=== PATIENT | male | born 1985 | race African-American/Black ===

== ENCOUNTER 2019-06-16 09:50 | Inpatient (IN) | payer BC, MEDICAID ==
[2019-06-16] VITALS (37 sets, daily range): BP systolic 105–223; BP diastolic 48–183
[~2019-06-16] VITALS: Ht 180.3 cm; Wt 113.6 kg
[2019-06-16] MEDS ORDERED: ASA81BEC PO (10:07)
[2019-06-16] MEDS ORDERED: GAVILAX17 GM PER TUBE (10:08)
[2019-06-16] MEDS ORDERED: ASPIRIN PER TUBE (10:09)
[2019-06-16] MEDS ORDERED: TRANSDERM-SCOP1 EACH TRANSDERM (10:11)
[2019-06-16 10:12] LABS: ABSOLUTE NEUTROPHILS 8.7 thou/uL (1.4-8.2); BASOPHILS 0.5 % (0.0-2.0); EOSINOPHILS 1.3 % (0.0-3.0); HEMATOCRIT 45.1 % (42.0-52.0); HEMOGLOBIN 14.8 gm/dL (14.0-18.0); LYMPHOCYTES 14.8 % (24.0-44.0); MCH 29.1 pg (26.0-34.0); MCHC 32.9 g/dL (28.0-37.0); MCV 88.6 fL (80.0-100.0); MONOCYTES 5.5 % (1.0-8.0); PLATELET COUNT 233 thou/uL (150-400); POLYS 77.9 % (36.0-66.0); RDW 12.8 % (10.5-14.5); WBC 11.2 thou/uL (4.0-11.0)
[2019-06-16] MEDS ORDERED: KEPPRA100 MG/1 M PER TUBE (10:12)
[2019-06-16] MEDS ORDERED: TOPROL XL50 MG PER TUBE (10:14)
[2019-06-16] MEDS ORDERED: JEVITY 1.5 CAL237 ML PER TUBE (10:15)
[2019-06-16] MEDS ORDERED: PHENYTOIN125 MG/52 PER TUBE (10:20)
[2019-06-16] MEDS ORDERED: CHILDREN'S80 MG/2.5 PO (10:21)
[2019-06-16] MEDS ORDERED: BAZA CR.1 E1 TOP (10:22)
[2019-06-16 10:28] LABS: CALCIUM 9.6 mg/dL (8.5-10.1); CREATININE 0.7 mg/dL (0.7-1.3); POTASSIUM 4.3 mmol/L (3.5-5.1)
[2019-06-16 10:34] LABS: ALBUMIN 3.4 g/dL (3.4-5.0); DIRECT BILIRUBIN 0.1 mg/dL (<0.1-0.3); TOTAL BILIRUBIN 0.3 mg/dL (<0.1-1.0); TOTAL PROTEIN 8.4 g/dL (6.4-8.2)
[2019-06-16 10:50] LABS: URINE BILIRUBIN NEGATIVE (Negative); URINE BLOOD NEGATIVE (Negative); URINE CLARITY CLOUDY; URINE COLOR YELLOW; URINE GLUCOSE-RANDOM* NEGATIVE (Negative); URINE KETONES NEGATIVE (Negative); URINE LEUKOCYTES-REFLEX NEGATIVE (Negative); URINE NITRITE-REFLEX NEGATIVE (Negative); URINE PROTEIN (DIPSTICK) NEGATIVE (Negative); URINE UROBILINOGEN 0.2 E.U./dl (0.2-1.0)
--- NOTE | 2019-06-16 14:30 | NUR ---
ADMIT TO ICU, SEPSIS PNEUMONIA. PT ON 35% T-TUBE ALMOST BACK TO BASE LINE. PERSISTANT VEGETATIVE STATE UNCHANGE. PT OPENS EYES SPONTANEOUSLY BUT FOLLOWS NO COMMANDS. PT FATHER UPDATED. VSS.
[2019-06-17] VITALS (17 sets, daily range): BP systolic 104–150; BP diastolic 63–105
[2019-06-17 03:54] LABS: CALCIUM 9.6 mg/dL (8.5-10.1); CREATININE 0.7 mg/dL (0.7-1.3); POTASSIUM 4.5 mmol/L (3.5-5.1)
--- NOTE | 2019-06-17 05:08 | NUR ---
NO OVERNIGHT EVENTS. PT. COUGHING UP MODERATE AMOUNT OF SECRETIONS. TUBE FEEDINGS STARTED, PT. TOLERATING WELL. ASSESSMENTS AND VITAL SIGNS CHARTED. CONTINUE TO FOLLOW POC. WILL CONTINUE TO MONITOR.
[2019-06-17 06:29] LABS: HEMOGLOBIN 13.7 gm/dL (14.0-18.0); MCH 28.9 pg (26.0-34.0); MCHC 32.6 g/dL (28.0-37.0); MCV 88.7 fL (80.0-100.0); RBC 4.73 mil/uL (4.50-6.00); RDW 12.3 % (10.5-14.5); WBC 8.5 thou/uL (4.0-11.0)
--- NOTE | 2019-06-17 15:22 | NUR ---
TO UNIT FROM ICU AT 1435, REPORT FROM NETTA, DOOR FRAMER. INLINE SUCTIONED VIA T-TUBE. CONTINUOUS PULSE OX. SR PER TELE. WILL CONTINUE TO FOLLOW CLOSELY.
[2019-06-18 01:17] VITALS: BP 149/100
[2019-06-18 05:02] LABS: CALCIUM 9.4 mg/dL (8.5-10.1); CREATININE 0.8 mg/dL (0.7-1.3); POTASSIUM 4.1 mmol/L (3.5-5.1)
[2019-06-18 06:05] VITALS: BP 129/83
[2019-06-18 08:40] VITALS: BP 113/74
[2019-06-18 12:07] VITALS: BP 118/87
[2019-06-18 16:20] VITALS: BP 128/96
--- NOTE | 2019-06-18 18:35 | NUR ---
VEGETATIVE STATE PERSISTS. LESS COUGHING NOTED. SR PER TELE. SPOKE WITH HIS FATHER ABOUT PROGRESS. REMAINS IN ISOLATION. CLOSE TO NURSES' STATION; WILL CONTINUE TO FOLLOW CLOSELY.
[2019-06-18 21:35] VITALS: BP 141/98
[2019-06-19 04:00] VITALS: BP 144/101
--- NOTE | 2019-06-19 05:12 | NUR ---
ASSUMED PT CARE AT 1900. PT IS LAYING IN BED WITH NO RESPONSIVENESS OR ABILITY TO FOOLOW COMMAND. NO FAMILY AT BED. PT IS AWAKE. NO SIGN OF DISTRESS NOTED. TRACH AND PEG TUBE IN PLACE. ASSESSMENT COMPLETED AND DOCUMENTED. FALL PRECAUTION IN PLACE. SCHEDULED MEDS ADMINISTERED THROUGH PEG TUBE, VITALS SIGNS STABLE. NO FURTHER NEEDS AT THIS TIME.
--- NOTE | 2019-06-19 07:33 | EKG ---
[place] [address] [facility] [employer] [place] [address] ELECTROCARDIOGRAM REPORT Name: FE PRESCOTT Room #: 217-P ADM IN M.R.#: [id number] Admission: 06/16/19 Attend Phys: Jovana Painter Discharge: Date of : 83 Report #: [id number] THIS REPORT FOR: //name// [facility] ED Test Date: 2019-06-16 Test Time: 09:52:06 Pat Name: FE PRESCOTT Department: Room: 217 Gender: M Nicker: JUAN MIGUEL : 1985 Requested By: Elkin Irwin Order Number: [id number] MD: Eduardo Banks Measurements Intervals [place] Rate: 124 P: 24 LA: 144 QRS: -7 QRSD: 100 T: -1 QT: 317 QTc: 456 Interpretive Statements Sinus tachycardia Baseline wander in lead(s) V1 No previous ECG available for comparison Electronically Signed On 06-19-2019 7:33:37 RESIDENT INSPECTOR by Eduardo Banks [email or web address] <ELECTRONICALLY SIGNED> By: Eduardo Banks MD, [facility] 06/19/19 0733 0952 1 Eduardo Banks MD, FACC /EPI
[2019-06-19 08:10] VITALS: BP 144/95
[2019-06-19] MEDS ORDERED: IPRAT-ALBUT 0.5-3 ML INH (11:58)
[2019-06-19 12:13] VITALS: BP 144/98
--- NOTE | 2019-06-19 14:09 | NUR ---
PATIENT ADMITS TO [facility] FROM [facility]. PATIENT WITH PREV STROKE ADMITS IN VEGATATIVE STATE FOR MANY YEARS. PLAN RETURN TO FACILITY TODAY. 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
--- NOTE | 2019-06-19 16:08 | NUR ---
PT DISCHARGING TODAY TO [facility] FAXED DC ORDERS/SUMMARY TO FACILITY AND RECEIVED CONFIRMATION AND LEFT MSG WITH FERNANDA IN ADM THAT TRANSPORT ARRANGED BY [facility] ([facility]) FOR 1630 TODAY. LEFT MSG WITH PT'S FATHER OF DC AND TIME OF TRANSPORT. UNIT NOTIFIED AND CHART COPY PER US. RN TO CALL REPORT TO [phone].
[2019-06-19 16:41] VITALS: BP 144/98
--- NOTE | 2019-06-19 17:34 | NUR ---
ASSUMMED PT CARE AT APPROXIMATELY 0700. PT AWAKE AND NOT ORIENTED OR RESPONSIVE. PT BASELINE IS VEGATATIVE STATE. REORIENTATION PROVIDED FREQUENTLY. PT DISCHARGING BACK TO [facility]. VITAL SIGNS STABLE. BLOOD SUGARS STABLE. GAVE REPORT TO ALVERTO MARIE AT [facility]. PT PERIPHERAL IV INTACT DUE TO PT RECEIVING IV ABX. RN STATED UNDERSTANDING OF REPORT AND DENIED HAVING FURTHER QUESTIONS. RUTH INTACT. O2 SAT STABLE. PT RECIEVING TRANSPORT VIA [facility]. TELE DC. PEG TUBE C/D/I. PT COMFORTABLE IN BED. HOSPITAL PACKET C PT INFORMATION SENT C [facility].
--- NOTE | 2019-06-26 19:35 | H ---
[facility] [place] [address] HISTORY AND PHYSICAL Name: FE PRESCOTT Room #: 217-P [facility] IN M.R.#: [id number] Admission: 06/16/19 Attend Phys: Jovana Painter Discharge: 06/19/19 Date of : 83 Report #: [id number] THIS REPORT FOR: //name// CC: Elkin Irwin DATE OF SERVICE: 06/16/2019 CHIEF COMPLAINT: This is a sad situation of a 34-year-old male with stroke and persistent vegetative state, who has findings of septicemia. HISTORY OF PRESENT ILLNESS: This is a patient who a few years ago had a massive stroke that left him unresponsive with the need for respiratory support and since that time, he has been on chronic ventilatory support with a nonweanable situation with full total care with PEG tube, bedridden and dealing with all the issues associated with essentially a terminal patient. Yesterday, he had the onset of fevers and chills and findings of early sepsis and he was sent over to the acute care hospital and subsequently admitted. PAST MEDICAL HISTORY: Noteworthy for those findings in the HPI. MEDICATIONS: List including scopolamine, aspirin, Keppra, metoprolol, lactulose, phenytoin, acetaminophen, and miconazole topical. ALLERGIES: She has no known drug allergies. FAMILY HISTORY: Noncontributory. SOCIAL HISTORY: He is debilitated, terminal and lives at [facility], still remains a full code situation per family request. REVIEW OF SYSTEMS: Unobtainable. PHYSICAL EXAMINATION: GENERAL: He is unresponsive on the ventilator. CHEST: Coarse. Tracheostomy is present. CARDIOVASCULAR: Shows a regular rate and rhythm. ABDOMEN: Soft and nontender with G-tube in place. EXTREMITIES: No cyanosis, clubbing or edema. Extremities showed, there were contractures of the extremities. NEUROLOGIC: Showed persistent vegetative state. ASSESSMENT AND PLAN: This is a patient in the near terminal state due to previous vascular injury and stroke that left him with persistent vegetative state and now with severe sepsis in the setting of a patient who lives in a facility long-term with highly resistant organisms. [place] remains terminal [facility] [address] [place] [address] HISTORY AND PHYSICAL Name: FE PRESCOTT Room #: 217-P [facility] IN .R.#: [id number] Admission: 06/16/19 Attend Phys: Jovana Painter Discharge: 06/19/19 Date of : 83 Report #: [id number] and hopefully we can keep this is a short stay here at the acute [facility] hospital and moving to the [facility] on Wednesday. <ELECTRONICALLY SIGNED> By: Elkin Irwin MD 06/26/19 1935 0947 1022 Elkin Irwin MD /nt
== END 2019-06-19 18:01 | DRG 871 ==
LOC: ER 09:50 → EROBS 12:30 → 2N 12:30 → ICU 14:01 → 2N 06-17 15:04
PROVIDERS: Emergency Medicine; Internal Medicine Pulmonary Disease; ADMIT Internal Medicine
DX: A41.9 Sepsis, unspecified organism (principal); J96.21 Acute and chronic respiratory failure with hypoxia; J69.0 Pneumonitis due to inhalation of food and vomit; I42.9 Cardiomyopathy, unspecified; I48.20 Chronic atrial fibrillation, unspecified; G40.909 Epilepsy, unspecified, not intractable, without status epilepticus; I25.2 Old myocardial infarction; Z86.73 Personal history of transient ischemic attack (TIA), and cerebral infarction without residual deficits; Z79.82 Long term (current) use of aspirin; Z79.899 Other long term (current) drug therapy; Z93.1 Gastrostomy status
CPT/HCPCS: 10078; 10081

== ENCOUNTER 2019-07-16 10:59 | Inpatient (IN) | payer OTHER, MEDICAID ==
[2019-07-16] VITALS (18 sets, daily range): BP systolic 99–167; BP diastolic 50–127
[~2019-07-16] VITALS: Ht 182.9 cm; Wt 111.3 kg
--- NOTE | ~2019-07-16 | HC ---
[facility] [place] [address] CONSULTATION Name: FE PRESCOTT Room #: 243-P [facility] IN ..#: [id number] Admission: 07/16/19 Attend Phys: Jovana Painter Discharge: Date of : 83 Report #: [id number] THIS REPORT FOR: //name// CC: Elkin Irwin DATE OF SERVICE: 07/17/2019 INFECTIOUS DISEASE CONSULTATION REASON FOR CONSULTATION: I was asked to evaluate concerning ventilator-associated pneumonia. HISTORY OF PRESENT ILLNESS: The patient is a 34-year-old, who transfers from [facility] where he resides on the chronic ventilatory unit. He presents with increasing respiratory distress and sepsis. The patient was unable to give any history for he has had a previous stroke and is in a chronic vegetative state. He has a tracheostomy and remains on the ventilator long-term. He is fed through a PEG tube. He has a chronic indwelling Arroyo catheter. No documented fever. His blood pressure has been stable and his heart rate has been under control. Has had a moderate amount of tracheal secretions. His oxygen requirements have increased, now on 50% FiO2. There has been no nausea, vomiting or diarrhea. He has no reported decubiti or rashes. He has peripheral IV in place. REVIEW OF SYSTEM: Full 10-point review of system was unable to be obtained due to the patient's chronic vegetative state. PAST MEDICAL HISTORY: Atrial fibrillation, myocardial infarction, seizure, stroke, permanent pacemaker, chronic vegetative state, tracheostomy, PEG tube, cardiomyopathy, urinary retention. FAMILY HISTORY: Noncontributory. SOCIAL HISTORY: Resides in a correction. ALLERGIES: None. MEDICATIONS: DuoNeb, MiraLax, aspirin, scopolamine, Keppra, metoprolol, Jevity, phenytoin, Tylenol. Started on vancomycin, Levaquin, and Zosyn yesterday after presenting to the Emergency Room. PHYSICAL EXAMINATION: VITAL SIGNS: He was afebrile, pulse 85, blood pressure 107/60 on FiO2 of 50%. SKIN: Without rash or decubitus. Trace peripheral edema. No palpable adenopathy. HEENT: Eyes, without scleral icterus. Mouth, the patient would not open, it [facility] [address] [place] [address] CONSULTATION Name: FE PRESCOTT Room #: 243-P [facility] IN [facility].#: [id number] Admission: 07/16/19 Attend Phys: Jovana Painter Discharge: Date of : 83 Report #: [id number] remain clenched. NECK: Supple. Tracheostomy site without erythema or drainage. LUNGS: Coarse breath sounds bilaterally, most predominant in the bases. HEART: Regular without appreciable murmur, gallop or rub. ABDOMEN: Soft without mass or hepatosplenomegaly. His PEG site was without erythema or drainage. GENITOURINARY: External genitalia without mass or lesion. He had an indwelling Arroyo catheter in place. A small tear in his urethra noted. RECTAL: Not performed. EXTREMITIES: Contractures with extension in his legs and feet. NEUROLOGIC: The patient responds to painful stimulus with extension, would not localize. LABORATORY STUDIES: Blood cultures are negative today. Sputum culture showing gram-negative bacilli. He presents with a history of carbapenem-resistant Acinetobacter. This is yet to be confirmed. Procalcitonin less than 0.5. BNP 81. Creatinine 0.9. Hemoglobin 15, WBC 14, platelet count 259,000. Influenza antigen negative. Chest x-ray with left lower lobe bronchopneumonia, elevated right hemidiaphragm. IMPRESSION: Healthcare-associated pneumonia, ventilator-acquired with multidrug resistant gram-negative identified from previous cultures. Would be concerned that this may be a cause of his presentation. However, the patient is without fever and his procalcitonin was negative. Given his multisystem disease, we will need to treat for carbapenem-resistant Acinetobacter until we get further culture results back. RECOMMENDATIONS: We will empirically start the patient on alternate gram-negative coverage. I have discussed with nursing staff at the bedside. We will make further adjustments pending cultures. By: [id number] Maikel Irwin MD /nt
[~2019-07-16 10:59] MED LIST: ASA81BEC PO; ASPIRIN PER TUBE; BAZA CR.1 E1 TOP; CHILDREN'S80 MG/2.5 PO; GAVILAX17 GM PER TUBE; IPRAT-ALBUT 0.5-3 ML INH; JEVITY 1.5 CAL237 ML PER TUBE; KEPPRA100 MG/1 M PER TUBE; PHENYTOIN125 MG/52 PER TUBE; TOPROL XL50 MG PER TUBE; TRANSDERM-SCOP1 EACH TRANSDERM
[2019-07-16 12:09] LABS: EOSINOPHILS 0.6 % (0.0-3.0)
[2019-07-16 12:11] LABS: ABSOLUTE NEUTROPHILS 12.4 thou/uL (1.4-8.2); ANION GAP 4 mmol/L (7-16); BASOPHILS 0.8 % (0.0-2.0); BUN 10 mg/dL (7-18); CALCIUM 10.3 mg/dL (8.5-10.1); CHLORIDE 100 mmol/L (98-107); CO2 34 mmol/L (21-32); CREATININE 0.9 mg/dL (0.7-1.3); GLUCOSE 117 mg/dL (74-106); HEMATOCRIT 46.7 % (42.0-52.0); MCH 28.7 pg (26.0-34.0); MCHC 32.1 g/dL (28.0-37.0); MCV 89.3 fL (80.0-100.0); MONOCYTES 4.2 % (1.0-8.0); PLATELET COUNT 259 thou/uL (150-400); POLYS 87.4 % (36.0-66.0); POTASSIUM 4.9 mmol/L (3.5-5.1); RBC 5.22 mil/uL (4.50-6.00); RDW 13.4 % (10.5-14.5); SODIUM 138 mmol/L (136-145); WBC 14.2 thou/uL (4.0-11.0)
[2019-07-16 12:20] LABS: TROPONIN-I <0.06 ng/mL (<0.06)
[2019-07-16 12:22] LABS: BE(vivo) 1.1 mmol/L (-2 to +3); HCO3 30.4 mmol/L (22.0-26.0); PCO2 69.9 mmHg (35.0-45.0); PO2 82.5 mmHg (80.0-100.0); pH 7.256 (7.360-7.450); sO2 94.1 % (92.0-98.0)
--- NOTE | 2019-07-16 17:00 | NUR ---
ADMIT ICU, PNEUMONIA, SEPSIS. RUTH PLACED. LARGE BROWN BM NOTED. NEW #6.0 SHIABBY TRACH. TOLORATING VENT.
[2019-07-16 17:09] LABS: HCO3 28.1 mmol/L (22.0-26.0); PCO2 44.6 mmHg (35.0-45.0); PO2 239.6 mmHg (80.0-100.0); pH 7.417 (7.360-7.450); sO2 99.5 % (92.0-98.0)
--- NOTE | 2019-07-16 17:30 | NUR ---
DR. CHERRY PAGED. RE ORDERS NEEDED FOR MEDS AND FLUIDS. ALSO PT POSTURING? OR MAYBE HAVING SEIZURE. AWAITING CALL BACK.
--- NOTE | 2019-07-16 18:00 | NUR ---
DR. CHERRY PAGED AGAIN.
--- NOTE | 2019-07-16 18:30 | NUR ---
DR. CHERRY CALLED BACK, REPORT ? SEIZURE V POSTURING. NO FLUIDS INFUSING. NO HOME MEDS ORDERED AND PT + FOR SEPSIS. ALSO DISCUSSED THAT PT FAMILY DOES NOT WANT TO CHANGE CODE STATUS. ORDERS GIVEN FOR FLUIDS. STATES HE DOES NOT WANT TO START MEDS OR TUBE FEEDINGS AT THIS TIME.
--- NOTE | 2019-07-16 18:30 | NUR ---
PT FATHER CALLED. UPDATE GIVEN. EMOTIONAL SUPPORT GIVEN. PT FATHER SAYS THAT ONCE HIS SON GETS THROUGH THIS ADMISSION HE WILL SIT DOWN WITH HIS FAMILY AND MAYBE CONSIDER COMFORT MEASURES.
[2019-07-17] VITALS (24 sets, daily range): BP systolic 98–134; BP diastolic 53–85
--- NOTE | 2019-07-17 09:24 | NUR ---
Pt usual formula is jevity 1.5, however due to critical care nutrition needs, will recommend change formula to vital high protein at goal 75ml/hr x 20 hrs per day (hold formula 1 hr before and 1 hr after phenytoin dosing). Add 1 packet beneprotein in each water flush ordered Consider discontinue ivf if on water flushes.
--- NOTE | 2019-07-17 10:26 | NUR ---
WOUND CARE CONSULT; RN TODAY STATES THERE ARE NO WOUNDS. ORDERED IN ERROR I WILL D/C WOUND CONSULT
--- NOTE | 2019-07-17 10:42 | NUR ---
PT ADMITTED RELATED TO [facility]A. CM REVIEWED CHART AND SPOKE WITH CARE TEAM. CM CALLED AND SPOKE WITH PT'S FATHER PRECIOUS PRESCOTT AND . HE INDICATED THAT PT HAD BEEN RESIDENT AT [facility]. PT HAS TRACH, PEG, IS IN A PERSISTANT VEGITATIVE STATE, AND IS NON VERBAL. PT'S FATHER INDICATED HE PLANS ON PT RETURNING TO [facility] ONCE MEDICALLY STABLE. CM TO FOLLOW INDICATED WITH DC PLANNING.
--- NOTE | 2019-07-17 13:07 | NUR ---
[facility] SPOKE WITH FERNANDA IN ADM SHE RECEIVED UPDATE. DP TO FOLLOW.
--- NOTE | 2019-07-17 14:29 | H ---
[facility] [place] [address] HISTORY AND PHYSICAL Name: FE PRESCOTT Room #: 243-P ADM IN M.R.#: [id number] Admission: 07/16/19 Attend Phys: Jovana Painter Discharge: Date of : 83 Report #: [id number] THIS REPORT FOR: //name// CC: Elkin Irwin DATE OF SERVICE: 07/16/2019 CHIEF COMPLAINT: Hypoxia. HISTORY OF PRESENT ILLNESS: The patient is a 34-year-old gentleman sent to the ER from [facility] for hypoxia. He is nonverbal at baseline due to prior history of stroke and chronic vegetative state for the last 3 years with a history of seizures. According to the notes, there was report of hypoxia and trach congestion at the care facility and he was directed to the ER for concern of pneumonia versus developing sepsis. Overnight, he has been placed on the ventilator with IV antibiotic support. PAST MEDICAL HISTORY: Atrial fibrillation, myocardial infarction, seizures, history of stroke, pacemaker implant, chronic vegetative state, tracheostomy tube, PEG tube, cardiomyopathy, urinary retention, history of sepsis, history of trach dislodgement. PAST SURGICAL HISTORY: Unknown. FAMILY HISTORY: Noncontributory. SOCIAL HISTORY: Unknown. ALLERGIES: None. MEDICATIONS: DuoNeb, MiraLax, aspirin, scopolamine, Keppra, metoprolol, Jevity, phenytoin, Tylenol. REVIEW OF SYSTEMS: He is unable to give a review. OBJECTIVE: VITAL SIGNS: Temperature 36.6, pulse 82, respirations 16, blood pressure 117/77, O2 sat 100% on the ventilator. GENERAL: His eyes are open and no meaningful response to verbal stimuli. HEAD AND NECK: Shows some greenish discharge from the nares. Trach in place. LUNGS: Clear anteriorly. HEART: Regular. ABDOMEN: Soft, normoactive bowel sounds with PEG in place. EXTREMITIES: No edema. NEUROLOGIC: He has muscle atrophy and contractures. [address] [address] HISTORY AND PHYSICAL Name: FE PRESCOTT Room #: [facility] IN [facility].#: [id number] Admission: 07/16/19 Attend Phys: Jovana Painter Discharge: Date of : 83 Report #: [id number] LABORATORY DATA: Initial ABG was pH 7.25, pCO2 of 69, pO2 of 82 on trach ___ with repeats pH 7.4, pCO2 of 44, pO2 240 on assist control, rate of 16. White count was 14. Chemistry unremarkable. ASSESSMENT: 1. Acute hypercapnic respiratory failure. 2. Healthcare-associated pneumonia. 3. Sepsis. 4. Cerebrovascular disease with prior history of stroke. 5. History of atrial fibrillation. 6. History of pacemaker implant. PLAN: I will continue ventilator support and IV antibiotics. I have added Lovenox DVT prophylaxis. GI prophylaxis and I will ask Dr. Maikel Irwin to follow his course for antibiotic management. <ELECTRONICALLY SIGNED> By: Vishal Hartman MD 07/17/19 1429 0832 0858 Vishal Hartman MD /nt
--- NOTE | 2019-07-17 15:32 | NUR ---
PT IS NONRESPONSIVE. EYES OPEN. FOLLOWS NO COMMANDS. REMAINS ON THE VENT WITH BREATHING TREATMENTS. LUNGS ARE CLEAR TO DIMINISHED. VITALS STABLE. TOLERATING TUBE FEEDING NO RESIDUAL. RUTH TO DD WITH JESSE URINE. PT IN ISOLATION FOR RESPIRTORY CRABS. RECIEVING ANTIBIOTIC TREATMENT WELL. NO ISSUES OR CONERNS NOTED AT THIS TIME. WILL CONTINUE TO PROGRESS TOWARDS GOALS
[2019-07-18] VITALS (17 sets, daily range): BP systolic 93–147; BP diastolic 52–101
--- NOTE | 2019-07-18 05:54 | NUR ---
ASSUMED CARE OF PATIENT AT 1900. VSS, AFEBRILE. NO S/S OF DISTRESS. EXTREMELY CONTRACTURED. TURNED Q2 AND ORAL CARE GIVEN. WORKING TOWARDS POC GOALS
[2019-07-18 06:46] LABS: HEMATOCRIT 36.7 % (42.0-52.0); MCH 29.1 pg (26.0-34.0); MCHC 32.1 g/dL (28.0-37.0); MCV 90.6 fL (80.0-100.0); RBC 4.05 mil/uL (4.50-6.00); RDW 13.1 % (10.5-14.5); WBC 9.6 thou/uL (4.0-11.0)
[2019-07-18 06:52] LABS: HEMOGLOBIN 11.8 gm/dL (14.0-18.0)
[2019-07-18 07:03] LABS: CALCIUM 9.4 mg/dL (8.5-10.1); CREATININE 0.8 mg/dL (0.7-1.3); POTASSIUM 3.3 mmol/L (3.5-5.1)
--- NOTE | 2019-07-18 13:50 | NUR ---
CARE TEAM INDICATED THAT PT IS STILL ON THE VENT BUT MAY BE MEDICALLY STABLE TO MOVE TO CCU. CM TO FOLLOW INDICATED IT IS ANTICPATED THAT PT WILL RETURN TO [facility] ONCE MEDICALLY STABLE. CM TO FOLLOW INDICATED WITH DC PLANNING.
--- NOTE | 2019-07-18 16:10 | NUR ---
Pt transferred to 362 via bed. Pt on child monitor. No change neurologically. Report was called to receiving nurse prior to transfer. No personal belongings. Obturator for trach and trach supplies transferred with the patient. New bottle of tube feeding sent with the patient. Isolation maintained on new nursing unit.
[2019-07-19 03:43] VITALS: BP 156/99
--- NOTE | 2019-07-19 04:37 | NUR ---
PATIENT IS AWAKE. PATIENT IS NON VERBAL. PATIENT IS TRACH VENT (CHRONIC). PATIENT IS IN ISOLATION. PATIENT IS TUBE FEED. PATIENTS LBM WAS THE 22ND. PATIENT HAS A RUTH. PATIENT IS CONTRACTED WITH FOOT DROP. PLANTER REFLEXES INTACT. PATIENT WILL OCCASIONALLY RELAX ON COMMAND BUT NOT CONSISTENTLY. PATIENT Q2TURN. PROM DONE WITH PATIENT. WCM. PATIENT IS RESTING COMFORTABLY.
[2019-07-19 06:31] LABS: CALCIUM 9.3 mg/dL (8.5-10.1); CREATININE 0.6 mg/dL (0.7-1.3); POTASSIUM 3.3 mmol/L (3.5-5.1)
[2019-07-19 08:26] VITALS: BP 161/103
[2019-07-19 15:33] VITALS: BP 152/102
--- NOTE | 2019-07-19 19:17 | NUR ---
PT WITH COARSE UPPPER LUNG SOUNDS...ON CHRONIC VENT..FROM [facility]...SUCTION PRN...
[2019-07-19 21:06] VITALS: BP 152/114
[2019-07-20 00:21] VITALS: BP 144/104
--- NOTE | 2019-07-20 03:33 | NUR ---
Patient making progress towards outcome goals. Oxygenation optimal with current vent settings. Vital signs and rhythm stable. Total care. Prafo boots for foot drop.
[2019-07-20 05:36] VITALS: BP 147/97
[2019-07-20 08:04] VITALS: BP 128/94
[2019-07-20] MEDS ORDERED: MINOCYCLINE 5050 M1 PO (08:59)
[2019-07-20] MEDS ORDERED: ENOXAPARIN40 MG/0.1 SUBQ (09:00)
[2019-07-20] MEDS ORDERED: UNASYN 3 GM VIAL3 G1 IV (09:00)
[2019-07-20] MEDS ORDERED: LOPRESSOR25 PER TUBE (09:00)
[2019-07-20] MEDS ORDERED: PEPCID20 MG PER TUBE (09:01)
[2019-07-20] MEDS ORDERED: PULMICORT0.5 MG/21 INH (09:01)
[2019-07-20 11:23] VITALS: BP 135/94
--- NOTE | 2019-07-20 12:46 | EKG ---
[address] [address] ELECTROCARDIOGRAM REPORT Name: FE PRESCOTT Room #: 362-P ADM IN M.R.#: [id number] Admission: 07/16/19 Attend Phys: Jovana Painter Discharge: Date of : 83 Report #: [id number] THIS REPORT FOR: //name// [facility] ED Test Date: 2019-07-16 Test Time: 12:17:29 Pat Name: FE PRESCOTT Department: Room: 362 Gender: M Facilities Operator: MARIJA : 1985 Requested By: Luis Lundberg Order Number: [id number] MD: Navid Abbott Measurements Intervals [place] Rate: 104 P: 71 SD: 179 QRS: -15 QRSD: 107 T: 46 QT: 397 QTc: 523 Interpretive Statements Sinus tachycardia Borderline left axis deviation Excessive baseline wander. Baseline wander in lead(s) I,III,aVL,aVF Compared to ECG 06/16/2019 09:52:06 Electronically Signed On 07-20-2019 12:45:59 INSTRUCTIONAL AIDE by Navid Abbott [email or web address] <ELECTRONICALLY SIGNED> By: Navid Abbott MD 07/20/19 1245 1217 121 Navid Abbott MD /EPI
--- NOTE | 2019-07-20 13:14 | NUR ---
TF RECOMMENDATIONS: 1) Hold TFs 1 hr before, 1 hr after Phenytoin dose BID (TF held 4 hrs/day). 2) As a result of TF only running 20 hrs/day, recommend increase in goal rate to 65 ml/hr on Jevity 1.5 to better meet calorie/protein needs. At 50 ml/hr rate it only provides 0.6 g/kg protein; greatly undermeeting goal protein. 3) At slightly higher goal rate of 65 ml/hr x 20 hrs with 1 pkt Beneprotein mixed with water flushes 4x/day, it would provide 2050 kcals (18 kcals/kg CBW or 25 kcals/kg IBW) and 107 g protein (~1 g/kg CBW, 1.3 g/kg IBW).
--- NOTE | 2019-07-20 14:24 | NUR ---
CARE TEAM INDICATED THAT PT IS MEDICALLY STABLE TO DC TO [facility] AT THE [facility] LEVEL THIS DAY. PT HAD BEEN THERE [facility]LL [facility]. TEAM SPOKE WITH TAYLA IN ADMISSIONS AND SHE INDICATED THAT THEY ARE ABLE TO ACCEPT PT AT THE LTAC. CHART COPY MADE. ORDERS FAXED. ALS TRANSPORT VIA [facility] ARRANGED BETWEEN [phone]. REPORT TO BE CALLED TO . CM CALLED AND NOTIFIED PT'S FATHER. HE IS AWARE AND AGREEABLE. NO OTHER CM INTERVENTION INDICATED. CASE CLOSED.
[2019-07-20 16:09] VITALS: BP 150/97
--- NOTE | 2019-07-20 16:59 | NUR ---
ASSUMED CARE OF PT AT 0700. PT IN NO ACUTE DISTRESS. NO MEANINGFUL NEUROLOGICAL INTERACTIONS. TOLERATING TUBE FEED AT GOAL RATE - MINIMAL RESIDUALS. VITALS STABLE. REPORT CALLED TO ELIU. TRANSPORTED AT APPROX 1630.
--- NOTE | 2019-07-23 16:10 | D ---
[facility] [place] [address] DISCHARGE SUMMARY Name: FE PRESCOTT Room #: 362-P [facility] IN M.R.#: [id number] Admission: 07/16/19 Attend Phys: Jovana Painter Discharge: 07/20/19 Date of : 83 Report #: [id number] THIS REPORT FOR: //name// CC: Elkin Irwin DATE OF SERVICE: 07/20/2019 FINAL DIAGNOSES: 1. Acute hypercapnic respiratory failure on chronic hypoxic respiratory failure. 2. Healthcare-associated pneumonia. 3. Hypertension. 4. Seizure disorder. 5. Cerebrovascular disease. 6. Persistent vegetative state. HOSPITAL COURSE: The patient was admitted with respiratory failure and was diagnosed with acute hypercapnic respiratory failure through ER based on ABG. He was placed on the ventilator, admitted to ICU, started on antibiotics. He was followed by Pulmonary and ID services. Other home medications were continued and tube feeding. He had no other interval medical complication. After 48 hours, he stabilized out and was transferred to the floor. The plan was to continue a course of IV antibiotics and ventilator care for now with attempts at weaning back to tracheostomy level at the LTAC facility. DISPOSITION: He is being transferred to [facility] facility for ventilator care, attempts at weaning and to complete an IV antibiotic course. I prepared his electronic discharge orders and they will follow up with our service along with ID and Pulmonary at the facility. <ELECTRONICALLY SIGNED> By: Vishal Hartman MD 07/23/19 1610 1202 1221 Vishal Hartman MD /ankush
== END 2019-07-20 16:41 | DRG 871 ==
LOC: ER 10:59 → 3W 15:06 → EROBS 15:06 → ICU 15:06 → 3W 07-18 16:06
PROVIDERS: Emergency Medicine; Internal Medicine Geriatric Medicine; Internal Medicine Pulmonary Disease; ADMIT Internal Medicine
PROC: 5A1945Z Respiratory Ventilation, 24-96 Consecutive Hours (ICD-10-PCS; principal; 2019-07-16)
DX: A41.9 Sepsis, unspecified organism (principal); J18.9 Pneumonia, unspecified organism; J96.02 Acute respiratory failure with hypercapnia; J96.21 Acute and chronic respiratory failure with hypoxia; R40.3 Persistent vegetative state; I42.9 Cardiomyopathy, unspecified; Z96.0 Presence of urogenital implants; Y95 Nosocomial condition; I48.91 Unspecified atrial fibrillation; G40.909 Epilepsy, unspecified, not intractable, without status epilepticus; Z86.73 Personal history of transient ischemic attack (TIA), and cerebral infarction without residual deficits; Z79.01 Long term (current) use of anticoagulants; I25.2 Old myocardial infarction; Z95.0 Presence of cardiac pacemaker; Z87.01 Personal history of pneumonia (recurrent); Z93.0 Tracheostomy status; Z79.899 Other long term (current) drug therapy
CPT/HCPCS: 10078; 10203; 10879